=== PATIENT | female | born 1970 | race Caucasian/White ===

== ENCOUNTER → 2017-07-21 | Outpatient (CLI) | payer BC | END | disposition home or self-care (01) | LOC: C.PAPS 13:47 | PROVIDERS: ATTEND Obstetrics & Gynecology | DX: Z01.419 Encounter for gynecological examination (general) (routine) without abnormal findings (principal); Z11.51 Encounter for screening for human papillomavirus (HPV) ==

== ENCOUNTER → 2017-12-03 | Outpatient (CLI) | payer OTHER ==
--- NOTE | 2017-12-03 15:19 | DIAGNOSTIC IMAGING REPORT ---
L LOWER EXT JOINT WITHOUT CLINICAL HISTORY: LT ANKLE PAIN trauma. Pain. TECHNIQUE: Multi axial MRI acquisition COMPARISON STUDY: None FINDINGS: Signal characteristics of all major osseous structures are unremarkable. There is no evidence for bone marrow replacing process. There is no significant bone contusion. Soft tissue structures show evidence for a mild degree of generalized soft tissue edema about the distal aspect of the lower leg as well as the proximal to mid foot and ankle region. This is seen primarily dorsally but is also seen in the interosseous regions throughout the intertarsal joints. Bulk of the ligaments including posterior tibial and peroneal tendons appear to be intact. There is evidence for edematous change about the medial and lateral collateral ligament complex. Partial tears are felt to be present. The ankle mortise shows no evidence for displacement. Superimposed tendinopathy is also present. IMPRESSION: 1. Mild generalized soft tissue edema about the distal lower leg and ankle. 2. No acute bony abnormality. 3. Edematous changes adjacent to the medial and lateral collateral ligament complexes of the ankle consistent with a combination of tendinopathy and a small partial tear components. The above report was generated using voice recognition software. It may contain grammatical, syntax or spelling errors. Electronically signed by: Diego Estrella M.D. 12/03/2017 3:17 PM Dictated Date/Time: 12/03/2017 3:09 PM
== END | disposition home or self-care (01) ==
LOC: C.MRI 13:35
PROVIDERS: ATTEND Family Medicine
DX: M25.572 Pain in left ankle and joints of left foot (principal)

== ENCOUNTER 2022-03-11 09:16 | Observation (INO) ==
--- NOTE | 2022-03-11 09:32 | Emergency Department Note ---
Impression & Plan Non-ST elevation MO (NSTEMI), Chest pain, Hypertension ED Provider Note NAME: JEANNINE SHANKS AGE: 52 SEX: F : 1970 ARRIVES VIA: Walk-In INFORMANT: Patient, ED PROVIDER(S): Ryan Foster MD Chief Complaint: Chest pain HPI: Patient presents due to concern for chest pain that began around 2200 last evening. The patient describes it as sharp somewhat left-sided but primarily central with mild radiation to her back. Patient states that this feels somewhat similar to when she required a stent that was completed due to a failed bypass this last month. The difference does that it is occurring at rest. Patient denies any current nausea vomiting but did have nausea last evening. Patient states that might of been exertional last night and that does go to her jaw. Patient denies any shortness of breath. Patient denies any upper respiratory symptoms. Patient did travel to the [facility] in mid January about a week after she had her stent placed but denies any calf pain, history of DVT or PE. Patient denies any recent falls or trauma and denies any calf pain or leg swelling. Patient has been compliant with her medications and took her aspirin and Plavix last evening. The patient did not take anything for her pain. Patient states that her pain seemed to subside a little bit last evening to where she could sleep but when she woke up this morning she had the discomfort and went to work at the [employer] and had persistent symptoms and thus presented here. The patient has had chest pain for approximate 3 and half hours. ROS: See HPI for pertinent positives and negatives. A total of 10 systems were reviewed and otherwise negative. Past medical history: See below Surgical history: See below Social history: See below Physical Exam: GENERAL: NAD, wearing a mask, non-toxic. Wearing glasses. EYE EXAM: Normal conjunctiva. PERRL, no anisocoria and EOM's grossly intact w/o pain. NECK: Supple, no nuchal rigidity, no adenopathy, non-tender. No signs of meningismus. FROM of the neck with good chin to chest and neck extension. No stridor. LUNGS: Clear to auscultation. Normal chest wall mechanics. HEART: NSR, no MRG. ABDOMEN: Abdomen soft, non-tender, normo-active bowel sounds, no masses, no rebound or guarding. BACK: No CVA TTP. SKIN: No rashes and no bruising. UPPER EXTREMITIES: Upper extremities are grossly normal. LOWER EXTREMITIES: Grossly normal, no edema. Negative Homans' sign bilaterally. NEURO EXAM: A&O x3, cranial nerves II-XII grossly intact, normal speech, moves all 4 extremities. Differential diagnoses: Cardiac ischemia, aortic dissection, pulmonary embolism, pneumothorax, pneumonia, pericarditis, myocarditis, esophageal rupture, GERD, cholecystitis, pancreatitis, musculoskeletal, as well as other pathologies. Course: Patient was seen and evaluated the bedside. Full history physical exam was performed. EKG interpreted by me Sinus rhythm, rate of 60, normal intervals, normal axis, no obvious ST elevations or T WI. T wave flattening in aVL noted. Patient's EKG looks grossly unchanged from January 30, 2022. Imaging Studies: See Below Cardiac monitoring: An order was placed for continuous cardiac monitoring. The monitor shows a rate of 62 with sinus rhythm. MDM: Per chart review the patient was diagnosed with unstable angina did have a ca rdiac catheterization completed January 30. The patient did have a PCI of the proximal to mid LAD with single drug-eluting stent. Patient's cardiac cath performed by Dr. Cisse same day showed distal left main at 10% with left anterior descending late proximal LAD focal 70 to 80% stenosis just proximal to D1. Remainder of the LAD is without significant CAD. Circumflex showed no significant CAD within the circumflex OM1 and OM2. RCA is large and dominant with no significant CAD within the RCA PDA and PL branches. Blood work was obtained and the patient was given a full dose aspirin and nitro as a precaution. EKG does not show any significant changes. IV fluids also ordered. Patient did have a D-dimer completed in addition to chest x-ray. Patient is a normal white count H&H and platelet count. Patient's kidney function is unremarkable with normal coags. D-dimer is not detectable. The patient's troponin was elevated. In light of the patient's recent chest pain that is now resolved with aspirin and nitro do believe the patient would benefit from heparin and admission. I did speak with on-call copyright manager Dr. Bishop who agreed with the heparin. Spoke with on-call hospitalist Dr. Rosen and the patient was admitted to the medicine service. Critical Care: I have personally spent 42 minutes of critical care time in direct management of this patient. This includes bedside care, interpretation of diagnostic studies, and testing, discussion with consultants, patient, and family members, and other require inpatient management activities. This 42 minutes is in excess of all separately billable procedures. 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, treated with mirena Dyslipidemia Hypertension Surgical History Hx of CABG S/P CABG x 1 Family History Mother Coronary heart disease Father Coronary heart disease Grandfather (Maternal) Coronary heart disease Brother Coronary heart disease Sister Coronary heart disease Other Diabetes Heart disease Myocardial infarction Denies family history of Ovarian cancer Breast cancer Colorectal cancer Social History Smoking Status: Never smoker Hx Alcohol Use: Yes Hx Substance Use: No Preferred Language: Swiss Communication Ability: Effective Animal Caregiver Required: No Beliefs That Will Affect Care: None Current Living Situation: Family Other Information That Helps Us Care for You: No Feels Safe at Home: Yes Safety Concerns: Feels Safe At This Time Allergies Allergies Allergy/AdvReac Type Severity Reaction Status Date / Time Penicillins Allergy Severe ANAPHYLAXIS Verified 02/06/22 10:30 Sulfa (Sulfonamide Allergy Mild RASH Verified 02/06/22 10:30 Antibiotics) Home Meds Home Medications Medication Instructions Recorded Confirmed topiramate 100 mg tablet 100 mg PO HS 07/09/18 03/11/22 [id number] 1 tab PO Q6H PRN Headache 06/06/19 03/11/22 50 mg-325 mg-40 mg tablet levonorgestrel 20 mcg/24 hours (7 20 mcg intrauterine ONCE 06/06/19 03/11/22 yrs) 52 mg intrauterine device Previous Rx's Medication Instructions Recorded amlodipine 5 mg tablet 5 mg PO HS #90 tabs 12/10/21 hydrochlorothiazide 25 mg tablet 25 mg PO DAILY #90 tabs 12/10/21 metoprolol succinate 100 mg 100 mg PO HS #90 tabs 12/10/21 tablet,extended release 24 hr rosuvastatin 20 mg tablet 20 mg PO HS #90 tabs 12/10/21 potassium chloride 20 mEq 40 meq PO DAILY #180 tabs 01/29/22 tablet,extended release aspirin 81 mg tablet,delayed 81 mg PO DAILY #30 tabs 01/30/22 release clopidogrel 75 mg tablet (Plavix) 75 mg PO DAILY #90 tabs 02/28/22 pantoprazole 40 mg tablet,delayed 40 mg PO DAILY #90 tabs 03/04/22 release (Protonix) Results & Data (ED) Vital Signs Vital Signs - 24 hr 03/11/22 09:24 03/11/22 09:45 03/11/22 09:48 Temperature 36.5 C Temperature Source Oral Pulse Rate 59 L 61 Pulse Rate [Right Finger] 58 L Pulse Rhythm Regular Regular Pulse Rhythm [Right Finger] Regular Pulse Strength Normal Pulse Strength [Right Finger] Normal Respiratory Rate 20 14 20 Respiratory Effort / Characteristics Non-Labored Spontaneous Non-Labored Spontaneous Respiratory Depth Normal Normal Respiratory Pattern Regular Regular Blood Pressure 131/75 Blood Pressure [Left Arm] 121/75 Blood Pressure Mean 93 Blood Pressure Mean [Left Arm] 90 Blood Pressure Position Sitting Blood Pressure Position [Left Arm] Lying Pulse Oximetry 100 100 100 Oxygen Delivery Method Room Air Room Air Room Air Sepsis Recent Fever Within 48 Hours No Sepsis New/Unexplained Change in Mental Status No Sepsis Action Taken by Nursing No Action Required 03/11/22 10:05 03/11/22 11:16 03/11/22 13:00 Temperature Temperature Source Pulse Rate Pulse Rate [Right Finger] 54 L 58 L Pulse Rhythm Pulse Rhythm [Right Finger] Regular Regular Pulse Strength Pulse Strength [Right Finger] Normal Normal Respiratory Rate 17 19 Respiratory Effort / Characteristics Non-Labored Spontaneous Non-Labored Spontaneous Respiratory Depth Normal Normal Respiratory Pattern Regular Blood Pressure Blood Pressure [Left Arm] Blood Pressure Mean Blood Pressure Mean [Left Arm] Blood Pressure Position Blood Pressure Position [Left Arm] Pulse Oximetry 99 97 Oxygen Delivery Method Room Air Room Air Room Air Sepsis Recent Fever Within 48 Hours Sepsis New/Unexplained Change in Mental Status Sepsis Action Taken by Skilled Nursing Medications Current Medication List: was personally reviewed by me Laboratory Data Attestation: I reviewed the patient's lab results. Result diagrams: 03/11/22 09:45 03/11/22 09:45 Lab Results 03/11/22 03/11/22 03/11/22 Range/Units 09:45 09:45 09:45 WBC 7.02 (4.8-10.8) K/ul RBC 4.80 (3.93-5.22) M/uL Hgb 14.6 (12.0-16.0) g/dl Hct 43.9 (34.1-44.9) % MCV 91.5 (80.0-100.0) fL MCH 30.4 (25.0-34.0) pg MCHC 33.3 (32.0-36.0) g/dL RDW Std Deviation 42.6 (36.4-46.3) fL RDW Coeff of Monica 12.8 (11.5-14.5) % Plt Count 212 (130-400) K/uL MPV 9.1 L (9.4-12.3) fL Immature Gran % (Auto) 0.3 % Neut % (Auto) 59.8 % Lymph % (Auto) 32.8 % [place] % (Auto) 4.7 % Eos % (Auto) 2.0 % Baso % (Auto) 0.4 % Neut # (Auto) 4.20 (1.4-6.5) K/uL Lymph # (Auto) 2.30 (1.2-3.4) K/uL [place] # (Auto) 0.33 (0.24-0.82) K/uL Eos # (Auto) 0.14 (0-0.50) K/uL Baso # (Auto) 0.03 (0-0.2) K/uL Immature Gran # (Auto) 0.02 (0.00-0.02) K/uL PT 10.6 (9.0-12.0) Seconds INR 1.0 (0.9-1.1) APTT 24.8 (21.0-31.0) Seconds PTT Ratio 0.9 D-Dimer < 190 (0-500) ug/L FEU Sodium 141 (136-145) mmol/L Potassium 3.8 (3.5-5.1) mmol/L Chloride 110 H (98-107) mmol/L Carbon Dioxide 24 (21-32) mmol/L Anion Gap 7 (3-11) BUN 14 (6-23) mg/dl Creatinine 0.97 (0.6-1.2) mg/dl Est Cr Clr Drug Dosing 67.2 ml/min Est GFR ( Amer) 77.3 ml/min Est GFR (Non-Af Amer) 66.7 ml/min BUN/Creatinine Ratio 14.4 (10-20) Glucose 115 H (70-99(Fasting)) mg/dl Calcium 9.6 (8.5-10.1) mg/dl Magnesium (1.7-2.4) mg/dl Total Bilirubin 0.3 (0.2-1.0) mg/dl AST 23 (13-39) U/L ALT 30 (7-52) U/L Alkaline Phosphatase 71 (34-104) U/L Troponin I High Sens 227.1 H* (0-14) pg/ml Total Protein 8.2 (6.0-8.3) gm/dl Albumin 4.7 (3.4-5.0) gm/dl Globulin 3.5 (2.5-4.0) gm/dl Albumin/Globulin Ratio 1.3 (0.9-2) Lipase 73 (11-82) U/L SARS-CoV-2, RNA, NAAT (NEGATIVE) 03/11/22 03/11/22 03/11/22 Range/Units 10:55 12:17 12:17 WBC (4.8-10.8) K/ul RBC (3.93-5.22) M/uL Hgb (12.0-16.0) g/dl Hct (34.1-44.9) % MCV (80.0-100.0) fL MCH (25.0-34.0) pg MCHC (32.0-36.0) g/dL RDW Std Deviation (36.4-46.3) fL RDW Coeff of Monica (11.5-14.5) % Plt Count (130-400) K/uL MPV (9.4-12.3) fL Immature Gran % (Auto) % Neut % (Auto) % Lymph % (Auto) % [place] % (Auto) % Eos % (Auto) % Baso % (Auto) % Neut # (Auto) (1.4-6.5) K/uL Lymph # (Auto) (1.2-3.4) K/uL [place] # (Auto) (0.24-0.82) K/uL Eos # (Auto) (0-0.50) K/uL Baso # (Auto) (0-0.2) K/uL Immature Gran # (Auto) (0.00-0.02) K/uL PT (9.0-12.0) Seconds INR (0.9-1.1) APTT (21.0-31.0) Seconds PTT Ratio D-Dimer (0-500) ug/L FEU Sodium (136-145) mmol/L Potassium (3.5-5.1) mmol/L Chloride (98-107) mmol/L Carbon Dioxide (21-32) mmol/L Anion Gap (3-11) BUN (6-23) mg/dl Creatinine (0.6-1.2) mg/dl Est Cr Clr Drug Dosing ml/min Est GFR ( Amer) ml/min Est GFR (Non-Af Amer) ml/min BUN/Creatinine Ratio (10-20) Glucose (70-99(Fasting)) mg/dl Calcium (8.5-10.1) mg/dl Magnesium 1.9 (1.7-2.4) mg/dl Total Bilirubin (0.2-1.0) mg/dl AST (13-39) U/L ALT (7-52) U/L Alkaline Phosphatase (34-104) U/L Troponin I High Sens 210.9 H* (0-14) pg/ml Total Protein (6.0-8.3) gm/dl Albumin (3.4-5.0) gm/dl Globulin (2.5-4.0) gm/dl Albumin/Globulin Ratio (0.9-2) Lipase (11-82) U/L SARS-CoV-2, RNA, NAAT NEGATIVE (NEGATIVE) Administered Medications Heparin Sodium/Dextrose (Heparin Sodium/Dextrose) 25,000 units in 500 mls @ 15 mls/hr IV .Q24H [facility]; Protocol Stop: 04/10/22 11:14 Last Admin: 03/11/22 12:39 Dose: 750 units/hr, 15 mls/hr Documented By: RC Co-signed By: SLB Discontinued Medications Aspirin (Aspirin Chew 324 Mg) 324 mg PO NOW STA Stop: 03/11/22 09:41 Last Admin: 03/11/22 10:00 Dose: 324 mg Documented By: CDV Heparin Sodium/Dextrose (Heparin Iv Adult Wt-Based Low-Dose *No* Bolus Protocol) 1 each IV Q15M [facility]; Protocol Stop: 04/10/22 11:44 Last Admin: 03/11/22 13:10 Dose: Not Given Documented By: Admin: 03/11/22 13:10 Dose: Not Given Documented By: Admin: 03/11/22 13:10 Dose: Not Given Documented By: Admin: 03/11/22 12:49 Dose: Not Given Documented By: SHAMA Sodium Chloride (Nss) 500 mls @ 999 mls/hr IV .Q31M STA Stop: 03/11/22 10:10 Last Infusion: 03/11/22 10:45 Dose: 0 mls/hr Documented By: Admin: 03/11/22 10:01 Dose: 999 mls/hr Documented By: CDV Nitroglycerin (Nitroglycerin Sl 0.4 Mg/Tab Tab) 0.4 mg SL NOW STA Stop: 03/11/22 09:41 Last Admin: 03/11/22 10:00 Dose: 0.4 mg Documented By: CDV Ondansetron HCl (Ondansetron Inj 2 Mg/Ml 2 Ml Vial) 4 mg IV NOW STA Stop: 03/11/22 09:41 Last Admin: 03/11/22 10:00 Dose: 4 mg Documented By: CDV Potassium Chloride (Potassium Chloride Crtab 20 Meq Tabcr) 40 meq PO NOW STA Stop: 03/11/22 13:19 Last Admin: 03/11/22 13:59 Dose: 40 meq Documented By: CDV Imaging Data Radiologist's Impression: Chest X-Ray 03/11/22 09:40 XR chest 1V portable HISTORY: Atypical Chest Pain COMPARISON: Chest 07/09/2018. FINDINGS: The lungs are clear. The cardiac silhouette is top normal in size. No pleural effusions. No pneumothorax. Surgical clips noted within the right upper quadrant. IMPRESSION: No acute process. ACT 112: Negative or not required by law. Electronically signed by: Adan Osuna M.D. 03/11/2022 10:17 AM Discharge Plan Visit Data Chief Complaint: Chest Pain Stated Complaint: CHEST PAIN, BACK PAIN, NECK PAIN, REFERRED BY DR ED Provider: Ryan Foster Discharge Problem: Non-ST elevation MO (NSTEMI), Chest pain, Hypertension Patient Disposition: Admitted As Inpatient Discharge Instructions Interventions: ED Discharge Assessment Last Done: 03/11/22 14:03
[2022-03-11] MEDS ORDERED: SODIUM CHLORIDE 0.9% 500 ML IV STA (09:40)
[2022-03-11] MEDS ORDERED: ONDANSETRON INJ 2 MG/ML 2 ML VIAL IV STA (09:40)
[2022-03-11] MEDS ORDERED: NITROGLYCERIN SL 0.4 MG/TAB TAB SL STA (09:40)
[2022-03-11] MEDS ORDERED: ASPIRIN CHEW 324 MG PO STA (09:40)
[2022-03-11 09:56] LABS: Basophils # (auto) 0.03 K/uL (0-0.2); Basophils % (auto) 0.4 %; Eosinophils # (auto) 0.14 K/uL (0-0.50); Hematocrit (blood only) 43.9 % (34.1-44.9); Hemoglobin 14.6 g/dl (12.0-16.0); Immature Granulocytes # (auto) 0.02 K/uL (0.00-0.02); Immature Granulocytes % (auto) 0.3 %; Lymphocytes % (auto) 32.8 %; Mean Corpuscular Hemoglobin 30.4 pg (25.0-34.0); Mean Corpuscular Hgb Conc 33.3 g/dL (32.0-36.0); Mean Corpuscular Volume 91.5 fL (80.0-100.0); Mean Platelet Volume 9.1 fL (9.4-12.3); Monocytes # (auto) 0.33 K/uL (0.24-0.82); Monocytes % (auto) 4.7 %; Neutrophils % (auto) 59.8 %; Platelet Count 212 K/uL (130-400); RDW Coefficient of Variation 12.8 % (11.5-14.5); RDW Standard Deviation 42.6 fL (36.4-46.3); White Blood Count 7.02 K/ul (4.8-10.8)
[2022-03-11 10:13] LABS: D Dimer < 190 ug/L FEU (0-500); Partial Thromboplastin Ratio 0.9; Partial Thromboplastin Time 24.8 Seconds (21.0-31.0); Prothrombin Time 10.6 Seconds (9.0-12.0)
--- NOTE | 2022-03-11 10:18 | XRay Report ---
XR chest 1V portable HISTORY: Atypical Chest Pain COMPARISON: Chest 07/09/2018. FINDINGS: The lungs are clear. The cardiac silhouette is top normal in size. No pleural effusions. No pneumothorax. Surgical clips noted within the right upper quadrant. IMPRESSION: No acute process. ACT 112: Negative or not required by law. Electronically signed by: Adan Osuna M.D. 03/11/2022 10:17 AM
[2022-03-11 10:22] LABS: Albumin Globulin Ratio 1.3 (0.9-2); Albumin Level 4.7 gm/dl (3.4-5.0); BUN Creatinine Ratio 14.4 (10-20); Bilirubin,Total 0.3 mg/dl (0.2-1.0); Calcium 9.6 mg/dl (8.5-10.1); Creatinine Clr Calc Pharmacy 67.2 ml/min; Est GFR (African American) 77.3 ml/min; Est GFR (Non-African American) 66.7 ml/min; Globulin 3.5 gm/dl (2.5-4.0); Potassium 3.8 mmol/L (3.5-5.1); Total Protein 8.2 gm/dl (6.0-8.3)
[2022-03-11 10:37] LABS: Troponin I High Sensitivity 227.1 pg/ml (0-14)
[2022-03-11] MEDS ORDERED: Heparin IV Adult Wt-Based Low-Dose *NO* Bolus Protocol IV ONE (11:13)
[2022-03-11] MEDS ORDERED: HEPARIN SODIUM/DEXTROSE 25,000 UNITS/500 ML BAG IV SCH (11:15)
--- NOTE | 2022-03-11 11:34 | History & Physical Report ---
Date of Service March 11, 2022 Assessment & Plan (1) Chest pain: Plan: - Onset last evening at rest, central chest pressure 7-8/10 with radiation to right jaw and upper back between shoulder blades. Normal EKG, however initial hs troponin 227. Given her CAD history and recent stent placement, this is concerning for NSTEMI. Did have recent travel a week after her stent placement down to [place], however D-dimer today within normal limits and she is not presenting with lower extremity swelling or calf pain. No SOB. SPO2 >95% on RA. Less concerning for aortic dissection, pulses equal bilaterally, back pain resolved with nitro, vitals within normal limits, BP normotensive. - Trend troponin, patient to be started on heparin gtt per cardiology. - Cardiology consulted, appreciate their recommendations. - Patient had recurrence of chest pain around 3 pm this afternoon. It is slightly less severe than it was last evening/this AM, but is still central chest pain with radiation to jaw and back. No associated symptoms. It lasts 2-3 mintues then resolves on its own for 15 minutes before recurring. An EKG was performed which had no acute changes, appeared very similar to EKG upon presentation. She is due for her next troponin at 8:00 this evening. For now, will order nitro paste for chest pain, morphine as second line if chest pain does not resolve with nitro. (2) CAD (coronary artery disease): Plan: - s/p CABG x1 LIMALAD in 2014 in [place]. - With recurrent chest pain this summer with walking--had a scheduled cardiac cath done on 01/30/22 that revealed severe CAD involving late proximal LAD and atretic OVALLE to LAD with no competitive flow noted within the LAD. Had a successful PCI of proximal and mid LAD with single FESTUS and angioplasty of jailed ostial first diagonal branch. - Continue baby ASA, Plavix, metoprolol, amlodipine, statin. - Had appointment with police manager on 02/04, at that time her Imdur was discontinued. - Will defer on rechecking lipid panel since its been done in the past 2 months, however will add on A1c to morning labs. (3) Hypertension: Plan: - Well-controlled on hydrochlorothiazide, amlodipine, and metoprolol. Imdur recently stopped by cardiology last month after stent placement. (4) Dyslipidemia: Plan: - Continue rosuvastatin 20 mg at night. - Most recent lipid panel in December 2021 --> all levels wnl. (5) GERD (gastroesophageal reflux disease): Plan: - Continue pantoprazole. Patient was recently switched from omeprazole to pantoprazole at last cardiology appointment due to the above results interaction with Plavix. (6) History of migraine headaches: Plan: - Continue topiramate 100 mg at night. Plan - Admit to PCU. - SCDs for VTE PPx, patient on heparin gtt - Full code. History of Present Illness Chief Complaint: chest pain since last evening Primary Care Provider: Freddie Arnold DO Nanci Zuniga is a 52-year-old female with past medical history significant for CAD s/p CABG x1 OVALLE to LAD in 2014 and subsequent FESTUS placement in proximalmid LAD in January 2022 due to an atretic OVALLE, hypertension, hyperlipidemia, migraine headaches, and GERD who presents today with chest pain. Last evening around 10:00 PM she was watching TV suddenly felt central chest pain that radiated to her back between her shoulder blades as well as her right jaw. She rates his pain 7-8/10. Continue to persist throughout the night, eventually she fell asleep is able to sleep through the night. She woke up this morning with the pain still present. It is associated with a throbbing bilateral headache and a sensation of feeling winded and nausea. She called her police manager this morning who recommended she present to the ED for evaluation. Since her stent was placed about a month ago, she has had 2 other incidents of chest pain similar to today's event, both coming on at rest. Chest pain is similar to how she presented prior to her bypass several years ago and prior to stent placement, however at that time her symptoms presented with exertion. In the ED, her VS are wnl and stable, HR in 50s, which appears to be patient's baseline. Labs significant for initial hs trop of 227, otherwise labs are largely unremarkable, D-dimer checked, <190 ug/L. CXR did not show acute process, negative for mediastinal widening. Allergies Allergy/AdvReac Type Severity Reaction Status Date / Time Penicillins Allergy Severe ANAPHYLAXIS Verified 02/06/22 10:30 Sulfa (Sulfonamide Allergy Mild RASH Verified 02/06/22 10:30 Antibiotics) Home Medications Medication Instructions Recorded Confirmed Type topiramate 100 mg tablet 100 mg PO HS 07/09/18 03/11/22 History asitqvsoqo-rcjoilspvlbhb-tcubabax 1 tab PO Q6H PRN Headache 06/06/19 03/11/22 History 50 mg-325 mg-40 mg tablet levonorgestrel 20 mcg/24 hours (7 20 mcg intrauterine ONCE 06/06/19 03/11/22 History yrs) 52 mg intrauterine device amlodipine 5 mg tablet 5 mg PO HS #90 tabs 12/10/21 03/11/22 Rx hydrochlorothiazide 25 mg tablet 25 mg PO DAILY #90 tabs 12/10/21 03/11/22 Rx metoprolol succinate 100 mg 100 mg PO HS #90 tabs 12/10/21 03/11/22 Rx tablet,extended release 24 hr rosuvastatin 20 mg tablet 20 mg PO HS #90 tabs 12/10/21 03/11/22 Rx potassium chloride 20 mEq 40 meq PO DAILY #180 tabs 01/29/22 03/11/22 Rx tablet,extended release aspirin 81 mg tablet,delayed 81 mg PO DAILY #30 tabs 01/30/22 03/11/22 Rx release clopidogrel 75 mg tablet (Plavix) 75 mg PO DAILY #90 tabs 02/28/22 03/11/22 Rx pantoprazole 40 mg tablet,delayed 40 mg PO DAILY #90 tabs 03/04/22 03/11/22 Rx release (Protonix) 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, treated with mirena Dyslipidemia Hypertension Surgical History Hx of CABG S/P CABG x 1 Family History Mother Coronary heart disease Father Coronary heart disease Grandfather (Maternal) Coronary heart disease Brother Coronary heart disease Sister Coronary heart disease Other Diabetes Heart disease Myocardial infarction Denies family history of Ovarian cancer Breast cancer Colorectal cancer Social History Smoking Status: Never smoker Hx Alcohol Use: Yes Hx Substance Use: No Preferred Language: Romansh Communication Ability: Effective Christian Counselor Required: No Beliefs That Will Affect Care: None Current Living Situation: Family Other Information That Helps Us Care for You: No Feels Safe at Home: Yes Safety Concerns: Feels Safe At This Time Review of Systems Review of Systems: Constitutional: No fever/chills, weakness, fatigue, myalgias, anorexia, night sweats Eyes: No diplopia, no worsening or blurred vision ENT: normal hearing, no trouble swallowing Respiratory: feeling winded with onset of chest pain last evening; No cough, sputum, dyspnea at rest or on exertion Cardiovascular: central chest pain with radiation to right jaw and between shoulder blades last evening Abdomen: nausea with chest pain without vomiting, abdominal pain, diarrhea or constipation : Denies dysuria, hematuria, increased urgency/frequency, urinary retention Musculoskeletal: No joint pain, calf pain, swelling Neurologic: No weakness, numbness/tingling, or balance problems Psychiatric: No anxiety or depression Skin: No rash or itch Physical Exam Physical Exam: General: awake, alert, no apparent distress Head: Normocephalic, atraumatic ENT: PERRL, EOMI, no pharyngeal exudate, mucous membranes moist Chest: Clear to auscultation, on room air, no adventitious breath sounds Cardiac: Regular rate and rhythm, no murmur, no JVD, normal peripheral pulses, good capillary refill Abdominal: NABS x 4 quadrants, soft, nontender to palpation, no rebound, guarding or tenderness Extremities: Normal inspection, no peripheral edema or erythema, calfs nontender to palpation Psych: Normal mood and affect Neuro: AAO x 3, strength intact bilaterally and rated 5/5, no motor deficits, speech is clear, no peripheral sensory deficits Skin: no rash or erythema Results & Data Results & Data ([facility]) Vital Signs (Past 12 Hours) Vital Signs Temp Pulse Pulse Resp BP BP Pulse Ox 03/11/22 10:05 03/11/22 09:48 58 L 20 121/75 100 03/11/22 09:45 61 14 100 03/11/22 09:24 36.5 C 59 L 20 131/75 100 O2 Del Method 03/11/22 10:05 Room Air 03/11/22 09:48 Room Air 03/11/22 09:45 Room Air 03/11/22 09:24 Room Air Laboratory Results Abnormal lab results 03/11/22 03/11/22 Range/Units 09:45 09:45 MPV 9.1 L (9.4-12.3) fL Chloride 110 H (98-107) mmol/L Glucose 115 H (70-99(Fasting)) mg/dl Troponin I High Sens 227.1 H* (0-14) pg/ml Diagnostic Findings Chest X-Ray 03/11/22 09:40 XR chest 1V portable HISTORY: Atypical Chest Pain COMPARISON: Chest 07/09/2018. FINDINGS: The lungs are clear. The cardiac silhouette is top normal in size. No pleural effusions. No pneumothorax. Surgical clips noted within the right upper quadrant. IMPRESSION: No acute process. ACT 112: Negative or not required by law. Electronically signed by: Adan Osuna M.D. 03/11/2022 10:17 AM ECG Additional Comments: Normal sinus rhythm Normal ECG When compared with ECG of 30-JAN-2022 11:25, No significant change was found. Code Status & VTE Plan Code Status Full Code. Supervising Physician Co-Signing Physician Notes PA Supervision Note: I personally saw and examined the patient. I verified all middleton points and agree with ANDREW Jean-Baptiste with the following exceptions and/or additions: S-Pt presents with intermittent CP substernal, radiating through to her back that came on last night and went away and then came on again this morning. Her pain was completely taken away with nitroglycerin in the ER. Denies shortness of breath or diaphoresis. No abdominal pains. Initial troponin in the ER was elevated in the 200s. ECG without ischemic changes. I discussed the case with cardiology. She developed chest pain again after admission and Nitropaste was given along with morphine. Treatment for cardiac catheterization which showed nothing amenable to treatment O- Vitals reviewed Gen: AAOx3, NAD HEENT: Anicteric sclerae, EOMI CV: RRR no mgr nl S1S2 Pulm: CTAB no wcr Abd: +BS soft NT ND no masses or hernias Ext: No edema, 2+ DP pulses Skin: No rashes, warm/dry Neuro: Full strength throughout Labs, Rads, and ECG reviewed A/B-63-rros-old female with history of CAD and history otherwise as above, here with NSTEMI. cardiac catheterization and was without significant changes-continue to medically manage Okay to discontinue heparin drip Restart isosorbide that was discontinued last month after stent Continue to trend troponin Appreciate cardiology consultation Monitor on telemetry PG Care Time/CCT Total # of Minutes Spent Total Time Spent with Patient: Total time spent is greater than 50% in coordination of care (as documented) at patient's floor/unit and/or counseling patient: Coding Level of Care Code 35562 Initial Inpt Care Lvl 2 Diagnoses Chest pain R07.9 CAD (coronary artery disease) I25.10 Hypertension I10 Dyslipidemia E78.5 GERD (gastroesophageal reflux disease) K21.9 History of migraine headaches Z86.69
[2022-03-11] MEDS: Heparin IV Adult Wt-Based Low-Dose *NO* Bolus Protocol IV SCH ×2 (12:49→13:10)
[2022-03-11] MEDS ORDERED: POTASSIUM CHLORIDE CRTAB 20 MEQ TABCR PO STA (13:18)
[2022-03-11] MEDS ORDERED: [UNRECOGNIZED DRUG - OTHER] IU SCH (14:51)
[2022-03-11] MEDS ORDERED: ACETAMINOPHEN 325 MG TAB PO PRN (14:51)
[2022-03-11] MEDS ORDERED: POLYETHYLENE (MIRALAX) 17 GM PACK PO PRN (14:51)
[2022-03-11] MEDS ORDERED: ONDANSETRON INJ 2 MG/ML 2 ML VIAL IV PRN (14:51)
[2022-03-11] MEDS ORDERED: LEVONORGESTREL IU SCH (14:51)
[2022-03-11] MEDS ORDERED: MoRPHine SULFATE 2 MG/ML CARP IV PRN (14:54)
--- NOTE | 2022-03-11 14:58 | Electrocardiogram Report ---
Test Reason : Blood Pressure : / mmHG Vent. Rate : 060 BPM Atrial Rate : 060 BPM P-R Int : 144 ms QRS Dur : 098 ms QT Int : 426 ms P-R-T Axes : 053 073 069 degrees QTc Int : 426 ms Poor data quality, interpretation may be adversely affected Normal sinus rhythm Normal ECG When compared with ECG of 30-JAN-2022 11:25, No significant change was found Confirmed by Aly Bishop ([id number]) on 03/11/2022 2:58:23 PM Referred By: Confirmed By:Aly Bishop
[2022-03-11] MEDS ORDERED: NITROGLYCERIN 2% OINTMENT 30GM TUBE EXT ONE (15:13)
[2022-03-11] MEDS ORDERED: CLOPIDOGREL BISULFATE 75 MG TAB PO ONE (15:48)
[2022-03-11] MEDS ORDERED: niCARdipine HCL INJ 2.5 MG/ML 10 ML AMP ONE (16:04)
[2022-03-11] MEDS ORDERED: HEPARIN (PORCINE) 1000 UNIT/ML 10 ML (CATH LAB USE ONLY) ONE (16:04)
[2022-03-11] MEDS ORDERED: MIDAZOLAM HCL 1 MG/ML 2ML VIAL ONE (16:04)
[2022-03-11] MEDS ORDERED: fentaNYL citrate 100 MCG/2 ML VIAL ONE (16:04)
[2022-03-11] MEDS ORDERED: NITROGLYCERIN/D5W 100MCG/ML 20ML SYR ONE (16:04)
--- NOTE | 2022-03-11 16:06 | Cardiology Consultation ---
Date of Consultation March 11, 2022 Assessment & Plan (1) Chest pain: -her discomfort is concerning for unstable angina pectoris. -agree with intravenous heparin and topical nitrates. -case discussed with Dr. Sosa. We will proceed with an urgent catheterization. (2) CAD (coronary artery disease): -s/p OVALLE to the LAD, December 2014 (robotic procedure). -proximal LAD FESTUS, 3.0 x 15 mm Almond, January 30, 2022. -angioplasty of a jailed 1st diagonal branch, January 30, 2022. -as above, urgent catheterization. (3) Hypertension: -adequate control on current regimen. (4) Dyslipidemia: -continue rosuvastatin. History of Present Illness Attending Physician: Lexi Rosen MD History of Present Illness Mrs. Zuniga is a 52-year-old female admitted earlier today with a chest pain syndrome. This consultation was ordered to assist in her cardiac management. Of note, she is typically seen by Dr. Cisse in the outpatient setting. The patient's recent history began in early January. She presented to our office complaints of classic exertional angina pectoris. She was taken to the cardiac catheterization laboratory on January 30 and found to have an atretic OVALLE to the LAD. There was an 80% proximal LAD stenosis. Dr. Sosa placed a 3.0 x 15 mm Almond at that position. He then angioplastied a jailed ostial D1 stenosis with a 2.0 balloon. She was discharged home in stable fashion on dual anti-platelet therapy. Since returned home, she has had several episodes of a chest pain syndrome. Last evening, she experienced right-sided chest tightness with a sharp component. There was radiation to her right trauma and her right upper back. Her discomfort lasted for approximately 60 minutes and seemed to resolve after she took Tylenol p.m.. After awakening this morning, she had a recurrence of that discomfort as described. She became quite concerned and presented to the emergency room for further care. On arrival here, her high sensitivity troponin was elevated 227.1. EKG had no acute findings. She was started on intravenous heparin and hospitalization was recommended. She had a recurrence of her discomfort just after arriving to her room on the 2nd floor. Her symptoms have since resolved, however, she does noted persistent heaviness in her upper chest. We have discussed need to proceed with a cardiac catheterization. Of note, her bypass surgery was performed in [facility] per in December of 2014. This included an OVALLE to the LAD. Past medical and surgical history 1. Coronary artery disease-see above 2. CABG times 08/01/2014 3. LAD FESTUS-January 30, 2022 4. Hypertension 5. Hypercholesterolemia 6. GERD Social history , lives alone No tobacco alcohol Family history Mother had her 1st MD at the age of 55. Her father had his 1st stent placed in his early 50s. Review of systems A 10 point review systems was undertaken and negative except that described above. Allergies Allergy/AdvReac Type Severity Reaction Status Date / Time Penicillins Allergy Severe ANAPHYLAXIS Verified 02/06/22 10:30 Sulfa (Sulfonamide Allergy Mild RASH Verified 02/06/22 10:30 Antibiotics) Home Medications Medication Instructions Recorded Confirmed Type topiramate 100 mg tablet 100 mg PO HS 07/09/18 03/11/22 History kypwmxlqsj-edjvfdpgjsmyi-izoxfxzb 1 tab PO Q6H PRN Headache 06/06/19 03/11/22 History 50 mg-325 mg-40 mg tablet levonorgestrel 20 mcg/24 hours (7 20 mcg intrauterine ONCE 06/06/19 03/11/22 History yrs) 52 mg intrauterine device amlodipine 5 mg tablet 5 mg PO HS #90 tabs 12/10/21 03/11/22 Rx hydrochlorothiazide 25 mg tablet 25 mg PO DAILY #90 tabs 12/10/21 03/11/22 Rx metoprolol succinate 100 mg 100 mg PO HS #90 tabs 12/10/21 03/11/22 Rx tablet,extended release 24 hr rosuvastatin 20 mg tablet 20 mg PO HS #90 tabs 12/10/21 03/11/22 Rx potassium chloride 20 mEq 40 meq PO DAILY #180 tabs 01/29/22 03/11/22 Rx tablet,extended release aspirin 81 mg tablet,delayed 81 mg PO DAILY #30 tabs 01/30/22 03/11/22 Rx release clopidogrel 75 mg tablet (Plavix) 75 mg PO DAILY #90 tabs 02/28/22 03/11/22 Rx pantoprazole 40 mg tablet,delayed 40 mg PO DAILY #90 tabs 03/04/22 03/11/22 Rx release (Protonix) Patient History Medical History CAD (coronary artery disease) 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, treated with mirena Dyslipidemia Hypertension Surgical History Hx of CABG S/P CABG x 1 Family History Mother Coronary heart disease Father Coronary heart disease Grandfather (Maternal) Coronary heart disease Brother Coronary heart disease Sister Coronary heart disease Other Diabetes Heart disease Myocardial infarction Denies family history of Ovarian cancer Breast cancer Colorectal cancer Social History Smoking Status: Never smoker Hx Alcohol Use: Yes Hx Substance Use: No Preferred Language: Setswana Communication Ability: Effective Dewatering Filtering Supervisor Required: No Beliefs That Will Affect Care: None Current Living Situation: Family Other Information That Helps Us Care for You: No Feels Safe at Home: Yes Safety Concerns: Feels Safe At This Time Physical Exam Physical Exam: In general this is a well-developed well-nourished white female in no acute distress. HEENT exam is negative. Neck is supple with full carotid upstrokes. There are no carotid bruits. Jugular venous pressure is flat at 90 . There is no thyromegaly. Cardiovascular exam reveals a regular rhythm with a normal S1 and S2. No S3, S4, or murmurs are noted. Lungs are clear without rales, rhonchi, or wheezes. Abdomen is soft and nontender without bruits. Extremities reveal intact radial artery and posterior tibial pulses bilaterally. There is no peripheral edema. Results & Data ([facility]) Vital Signs (Past 12 Hours) Vital Signs Temp Pulse Pulse Resp BP BP Pulse Ox 03/11/22 15:20 36.5 C 56 L 18 129/87 97 03/11/22 14:51 36.5 C 56 L 18 129/87 97 03/11/22 13:00 58 L 19 97 03/11/22 11:16 54 L 17 99 03/11/22 10:05 03/11/22 09:48 58 L 20 121/75 100 03/11/22 09:45 61 14 100 03/11/22 09:24 36.5 C 59 L 20 131/75 100 O2 Del Method 03/11/22 15:20 Room Air 08/16/22 14:51 Room Air 03/11/22 13:00 Room Air 03/11/22 11:16 Room Air 03/11/22 10:05 Room Air 03/11/22 09:48 Room Air 03/11/22 09:45 Room Air 03/11/22 09:24 Room Air Laboratory Results CBC notes hemoglobin of 14.6, hematocrit 43.9, white count 7.02, and platelet count [id number]. Electrolytes note a sodium of 141, potassium 3.8, chloride 110, bicarb 24, BUN 14, creatinine 0.97, glucose of 115. Initial high sensitivity troponin was 227.1 with a follow-up value of 210.9. Diagnostic Findings Echocardiogram performed at the bedside notes normal left ventricular systolic function without obvious wall motion abnormalities. EKG notes normal sinus rhythm without abnormalities. Chest x-ray shows no acute disease. PG Care Time/CCT Total # of Minutes Spent Total Time Spent with Patient: Total time spent is greater than 50% in coordination of care (as documented) at patient's floor/unit and/or counseling patient: Coding Level of Care Code 48815 Inpt Consult Level 5 Diagnoses Chest pain R07.9 CAD (coronary artery disease) I25.10 Hypertension I10 Dyslipidemia E78.5
--- NOTE | 2022-03-11 16:25 | XCELERA ---
[id number]
--- NOTE | 2022-03-11 17:14 | Post Anesthesia Assessment ---
Date of Service March 11, 2022 Post Sedation Assessment Vital Signs Temp Pulse Pulse Resp BP BP Pulse Ox 03/11/22 16:49 58 L 03/11/22 14:51 03/11/22 15:20 97.7 F 56 L 18 129/87 97 03/11/22 14:51 97.7 F 56 L 18 129/87 97 03/11/22 13:00 58 L 19 97 03/11/22 11:16 54 L 17 99 03/11/22 10:05 03/11/22 09:48 58 L 20 121/75 100 03/11/22 09:45 61 14 100 03/11/22 09:24 97.7 F 59 L 20 131/75 100 Pulse Ox O2 Del Method O2 Del Method 03/11/22 16:49 03/11/22 14:51 97 Room Air 03/11/22 15:20 Room Air 03/11/22 14:51 Room Air 03/11/22 13:00 Room Air 03/11/22 11:16 Room Air 03/11/22 10:05 Room Air 03/11/22 09:48 Room Air 03/11/22 09:45 Room Air 03/11/22 09:24 Room Air Recovery Score Activity: Moves 4 extremities Respiration: Deep Breath/Cough Circulation: +/-20% PreAnes Value Consciousness: Fully Awake Oxygen Saturation: O2 needed for >90% Discharge Sedation Level of Care: Fast Track Phase II Post Sedation Plan On clinical assessment, the patient appears to have tolerated the sedation without complications. Patient is recovering as anticipated. Patient will continue to be monitored by nursing and may be discharged when sedation discharge criteria are met per below protocol. Upon Completions of procedure up to 15 minutes continue every 5 minute vital signs and the P.A.R. score; then discharge to a Phase I or Fast Track to Phase II per the following guidelines: * Discharge Patient to appropriate Phase II area if PAR is 8 or greater or return to pre- procedure baseline. The post - procedure orders will be as directed. * If PAR score is less than 8 or not return to pre-procedure baseline then patient will follow Phase I monitoring till PAR is reached for Phase II. The Phase I may be done in procedure room or may call to secure a Phase I area. * If naloxone or flumazenil are used for reversal, hold in Phase I for continued monitoring from when last reversal dose was given for a minimum of 60 minutes or longer pending the nurse and/or physician discretion of patient condition before discharge to Phase II. Please call the Sedation Physician to re-evaluate and complete post-note for discharge to Phase II area. Do NOT discharge from procedure sedation or Phase 1 until post- sedation evaluation note is complete by procedure /sedation MD Sedation Discharge Instructions to be given to the patient at discharge to home.
--- NOTE | 2022-03-11 17:14 | Pre Anesthesia Assessment ---
Date of Service March 11, 2022 Pre Sedation Assessment Vital Signs Temp Pulse Pulse Resp BP BP Pulse Ox 03/11/22 16:49 58 L 03/11/22 14:51 03/11/22 15:20 97.7 F 56 L 18 129/87 97 03/11/22 14:51 97.7 F 56 L 18 129/87 97 03/11/22 13:00 58 L 19 97 03/11/22 11:16 54 L 17 99 03/11/22 10:05 03/11/22 09:48 58 L 20 121/75 100 03/11/22 09:45 61 14 100 03/11/22 09:24 97.7 F 59 L 20 131/75 100 Pulse Ox O2 Del Method O2 Del Method 03/11/22 16:49 03/11/22 14:51 97 Room Air 03/11/22 15:20 Room Air 03/11/22 14:51 Room Air 03/11/22 13:00 Room Air 03/11/22 11:16 Room Air 03/11/22 10:05 Room Air 03/11/22 09:48 Room Air 03/11/22 09:45 Room Air 03/11/22 09:24 Room Air Cardiovascular RRR, no murmur, no edema Respiratory normal respiratory effort, lungs clear to auscultation Pre-Sedation Airway Assessment Smoking Status: Never smoker Hx Sleep Apnea: No Hx Difficult Intubation: No Short, Thick Neck: No Thyromental Distance: > or= 3.5 Finger Breadths Oral Cavity: + WNL Mallampati Class: III ASA: ASA3 NPO Status Date of Last Intake of Fluids: 03/11/22 Time of Last Intake of Fluids: 08:00 Last Oral Intake of Fluids Comment: sip with meds Date of Last Intake of Solid Food: 03/10/22 Procedure Planning Contraindications for Sedation: none Current Medications Reviewed: Yes Notes The planned sedation has been discussed with the patient. Informed Consent was obtained. I have identified the patient, determined the appropriateness of sedation and have assessed the patient immediately prior to the procedure. All medicine(s) and interventions are by my order.
--- NOTE | 2022-03-11 17:21 | Cardiac Catheterization ---
[facility] Data: Religious Activities Director Cardiac Status Clinical evaluation leading to the procedure CAD Presenation: Non STEMI Anginal Classification: CCS IV Diagnostic Physicians Name: Zen Sosa MD Closure Device Recommendations: Medical Therapy and/or Counseling Cardiac Cath Procedure Full Procedure Date March 11, 2022 Pre-Procedure Diagnosis Pre-Procedure Diagnosis: Angina AUC Score AUC Score: 7 Post-Procedure Diagnosis Post-Procedure Diagnosis: Mild CAD Procedure(s) Performed Procedure(s) Performed: Coronary Angiography, Left Heart Cath and Ultrasound Guided Vascular Access Communication Arts Lecturer Zen Sosa MD Systems Testing Laboratory Technician(s) Ladonna Estimated Blood Loss Estimated Blood Loss: 5 Medication(s) Medication(s): Fentanyl, Heparin, Lidocaine 1%, Nicardipine, Nitroglycerin and Versed Summary of Findings Indication: Suspected ACS. Prior PCI to LAD 01/2022 Access: 6 Fr right ulnar artery under ultrasound guidance Catheters: [place], diagnostic JL 3.5, AL-1 Findings: LM -normal caliber, no significant disease LAD -medium caliber, proximal to mid stent widely patent. Remainder of LAD without significant disease. Jailed D1 with acute band and 40% ostial but SHEBA- 3 flow Circumflex -medium caliber, no significant disease. Small OM1, OM 2 without disease. RCA -dominant, large caliber, no significant disease. PDA with sluggish flow LVEDP -14 Arterial Closure: TR band Summary: 1. Mild nonobstructive coronary artery disease -Widely patent proximal to mid LAD stent. 40% ostial jailed D1 Sluggish flow in PDA, distal LAD potentially secondary to vasospasm/microvascular dysfunction Known atretic OVALLE 2. Normal intracardiac filling pressure Recommendations: Titrate coronary vasodilators, continue ASCVD risk factor modification Continue DAPT with aspirin, clopidogrel Can discontinue heparin infusion Hemodynamics Rest Ao:: 118/61/89 Final Ao: 136/7696 LV: 118/14 Recommendations Recommendations: Medical Therapy and/or Counseling Specimens Specimens: None Radiation Exposure (mGy) 851 Contrast (mls) 30 Anesthesia Moderate [id number] Procedural Complication(s) None Disposition PCU I attest to the content of the Intraoperative Record and any orders documented therein. Any exceptions are noted below. [employer] Card Cath Procedure Codes Cardiac Catheterization Procedure 1: Cardiovascular Cath Procedures: 78059 Coronaries and LHC (+/-LV) Therapeutic Services & Ancillary Proc Procedure 1: Cardiovascular Tx and Anc Procedures: 29263 Ultrasonic Guidance Vascular Access Moderate Sedation Procedure 1: Sedation/Anesthesia: 56197 Mod Sedation by the same physician;Init15 Min Child Age 5 & Up PG Care Time/CCT Total # of Minutes Spent Total Time Spent with Patient: Total time spent is greater than 50% in coordination of care (as documented) at patient's floor/unit and/or counseling patient:
[2022-03-11] MEDS ORDERED: SODIUM CHLORIDE 0.9% 1000ML 1,000 ML IV SCH (17:30)
[2022-03-11] MEDS ORDERED: NITROGLYCERIN 2% OINTMENT 30GM TUBE EXT SCH (18:00)
[2022-03-11] MEDS ORDERED: ROSUVASTATIN CALCIUM 20 MG TAB PO SCH (21:00)
[2022-03-11] MEDS ORDERED: METOPROLOL SUCC 50MG EXT REL TAB PO SCH (21:00)
[2022-03-11] MEDS ORDERED: TOPIRAMATE 100 MG TAB PO SCH (21:00)
[2022-03-11] MEDS ORDERED: amLODIPine BESYLATE 5 MG TAB PO SCH (21:00)
[2022-03-12 02:35] LABS: Basophils # (auto) 0.02 K/uL (0-0.2); Basophils % (auto) 0.3 %; Eosinophils # (auto) 0.12 K/uL (0-0.50); Eosinophils % (auto) 1.9 %; Hematocrit (blood only) 37.6 % (34.1-44.9); Hemoglobin 12.7 g/dl (12.0-16.0); Immature Granulocytes # (auto) 0.02 K/uL (0.00-0.02); Immature Granulocytes % (auto) 0.3 %; Lymphocytes # (auto) 1.88 K/uL (1.2-3.4); Lymphocytes % (auto) 29.8 %; Mean Corpuscular Hemoglobin 30.2 pg (25.0-34.0); Mean Corpuscular Hgb Conc 33.8 g/dL (32.0-36.0); Mean Corpuscular Volume 89.5 fL (80.0-100.0); Mean Platelet Volume 9.1 fL (9.4-12.3); Monocytes # (auto) 0.32 K/uL (0.24-0.82); Monocytes % (auto) 5.1 %; Neutrophils # (auto) 3.94 K/uL (1.4-6.5); Neutrophils % (auto) 62.6 %; Platelet Count 169 K/uL (130-400); RDW Coefficient of Variation 12.7 % (11.5-14.5); RDW Standard Deviation 41.4 fL (36.4-46.3)
[2022-03-12 03:04] LABS: BUN Creatinine Ratio 13.9 (10-20); Calcium 8.6 mg/dl (8.5-10.1); Creatinine Clr Calc Pharmacy 59.7 ml/min; Est GFR (African American) 67.9 ml/min; Est GFR (Non-African American) 58.6 ml/min; Magnesium 1.8 mg/dl (1.7-2.4); Potassium 3.5 mmol/L (3.5-5.1)
[2022-03-12 03:17] LABS: Prothrombin Time 10.9 Seconds (9.0-12.0)
[2022-03-12 03:39] LABS: Troponin I High Sensitivity 102.2 pg/ml (0-14)
[2022-03-12 06:52] LABS: Estimated Average Glucose 134 mg/dl; Hemoglobin A1C 6.3 % (4.5-5.6)
[2022-03-12] MEDS ORDERED: CLOPIDOGREL BISULFATE 75 MG TAB PO SCH (09:00)
[2022-03-12] MEDS ORDERED: ISOSORBIDE MONO EXTENDED REL 30 MG TABCR PO SCH (09:00)
[2022-03-12] MEDS ORDERED: POTASSIUM CHLORIDE CRTAB 20 MEQ TABCR PO SCH (09:00)
[2022-03-12] MEDS ORDERED: ASPIRIN 81 MG ECTAB PO SCH (09:00)
[2022-03-12] MEDS ORDERED: hydroCHLOROthiazide 25 MG TAB PO SCH (09:00)
[2022-03-12] MEDS ORDERED: PANTOprazole 40 MG TAB PO SCH (09:00)
--- NOTE | 2022-03-12 11:07 | Cardiology Progress Note ---
Date of Service March 12, 2022 Assessment & Plan (1) Chest pain: Plan: -etiology of her discomfort is uncertain; spasm versus small vessel disease versus GI. -isosorbide mononitrate restarted yesterday. -stable for discharge. -follow-up with Dr. Cisse. (2) CAD (coronary artery disease): Plan: -s/p OVALLE to the LAD, December 2014 (robotic procedure). -proximal LAD FESTUS, 3.0 x 15 mm [place], January 30, 2022. -angioplasty of a jailed 1st diagonal branch, January 30, 2022. -cardiac catheterization yesterday noted a widely patent stent and a 40% jailed D1. (3) Hypertension: Plan: -adequate control on current regimen. (4) Dyslipidemia: Plan: -continue rosuvastatin. Admission and Anticipated Discharge Date Admission Date: March 11, 2022 Subjective The patient is resting comfortably in bed without complaints of chest pain dyspnea. She does have a headache related to isosorbide mononitrate. Physical Exam Physical Exam: In general this is a well-developed well-nourished white female in no acute distress. HEENT exam is negative. Neck is supple with full carotid upstrokes. There are no carotid bruits. Jugular venous pressure is flat at 90. There is no thyromegaly. Cardiovascular exam reveals a regular rhythm with a normal S1 and S2. No S3, S4, or murmurs are noted. Lungs are clear without rales, rhonchi, or wheezes. Abdomen is soft and nontender without bruits. Extremities reveal intact radial artery and posterior tibial pulses bilaterally. Right wrist is intact. There is no peripheral edema. Results & Data ([facility]) Vital Signs (Past 12 Hours) Vital Signs Temp Pulse Pulse Resp BP Pulse Ox O2 Del Method 03/12/22 08:00 61 03/12/22 07:54 36.6 C 61 18 123/76 97 Room Air 03/12/22 03:00 36.8 C 64 18 111/75 98 03/11/22 23:55 53 L 03/11/22 23:00 36.3 C L 55 L 18 109/67 98 Laboratory Results High sensitivity troponin on presentation was 227.1 with follow-up values of 210.9, 139.7, 102.2, and 74.8. Diagnostic Findings Cardiac catheterization revealed a widely patent proximal to mid LAD stent. There is a jailed D1 40% stenosis with normal flow. tooling specialist is benign. PG Care Time/CCT Total # of Minutes Spent Total Time Spent with Patient: Total time spent is greater than 50% in coordination of care (as documented) at patient's floor/unit and/or counseling patient: Coding Level of Care Code 66470 Subseq Hosp Care Lvl 3 Diagnoses Chest pain R07.9 CAD (coronary artery disease) I25.10 Hypertension I10 Dyslipidemia E78.5
--- NOTE | 2022-03-12 11:39 | Discharge Summary ---
Date of Service March 12, 2022 Admission HPI Per Admitting Provider Nanci Zuniga is a 52-year-old female with past medical history significant for CAD s/p CABG x1 OVALLE to LAD in 2014 and subsequent FESTUS placement in proximalmid LAD in January 2022 due to an atretic OVALLE, hypertension, hyperlipidemia, migraine headaches, and GERD who presents today with chest pain. Last evening around 10:00 PM she was watching TV suddenly felt central chest pain that radiated to her back between her shoulder blades as well as her right jaw. She rates his pain 7-8/10. Continue to persist throughout the night, eventually she fell asleep is able to sleep through the night. She woke up this morning with the pain still present. It is associated with a throbbing bilateral headache and a sensation of feeling winded and nausea. She called her machinist apprentice this morning who recommended she present to the ED for evaluation. Since her stent was placed about a month ago, she has had 2 other incidents of chest pain similar to today's event, both coming on at rest. Chest pain is similar to how she presented prior to her bypass several years ago and prior to stent placement, however at that time her symptoms presented with exertion. In the ED, her VS are wnl and stable, HR in 50s, which appears to be patient's baseline. Labs significant for initial hs trop of 227, otherwise labs are largely unremarkable, D-dimer checked, <190 ug/L. CXR did not show acute process, negative for mediastinal widening. Principal Diagnosis Chest painetiology uncertain Discharge Exam No acute distress Heart regular Chest clear Good volume status Vital Signs Temp Pulse Pulse Resp BP Pulse Ox Pulse Ox 03/12/22 08:00 61 03/12/22 07:54 36.6 C 61 18 123/76 97 03/12/22 03:00 36.8 C 64 18 111/75 98 03/11/22 23:55 53 L 03/11/22 23:00 36.3 C L 55 L 18 109/67 98 03/11/22 19:49 36.6 C 58 L 18 116/76 98 03/11/22 18:47 36.4 C L 62 16 133/79 97 03/11/22 18:34 64 03/11/22 18:13 36.8 C 60 18 131/75 98 03/11/22 17:58 36.7 C 61 18 110/72 95 03/11/22 17:43 36.8 C 56 L 18 111/76 98 03/11/22 17:28 36.7 C 57 L 18 108/76 97 03/11/22 17:26 57 L 18 108/76 97 03/11/22 16:49 58 L 03/11/22 14:51 97 03/11/22 15:20 36.5 C 56 L 18 129/87 97 03/11/22 14:51 36.5 C 56 L 18 129/87 97 03/11/22 13:00 58 L 19 97 O2 Del Method O2 Del Method 03/12/22 08:00 03/12/22 07:54 Room Air 03/12/22 03:00 03/11/22 23:55 03/11/22 23:00 03/11/22 19:49 03/11/22 18:47 Room Air 03/11/22 18:34 03/11/22 18:13 Room Air 03/11/22 17:58 Room Air 03/11/22 17:43 Room Air 03/11/22 17:28 Room Air 03/11/22 17:26 Room Air 03/11/22 16:49 03/11/22 14:51 Room Air 03/11/22 15:20 Room Air 03/11/22 14:51 Room Air 03/11/22 13:00 Room Air Intake and Output 03/11/22 03/12/22 03/12/22 22:59 06:59 14:59 Intake Total 315.5 / 1368.833 553.333 / 1368.833 Balance 315.5 / 1368.833 553.333 / 1368.833 Intake: IV 75.5 / 1128.833 553.333 / 1128.833 Heparin Sodium/Dextrose 25,000 75.5 / 75.5 units In 500 ml @ 750 UNITS/HR 15 mls/hr IV .Q24H ANANTH Rx#: [id number] Sodium Chloride 0.9% 1000ML 1, 553.333 / 553.333 000 ml @ 100 mls/hr IV .Q10H ANANTH Rx#:[id number] Oral 240 / 240 Other: # Unmeasured Voids 1 1 Weight 81.7 kg 81.6 kg 81.6 kg Weight Measurement Method Standing Scale Built in [facility] Patient Weight 03/13/22 06:59 Weight 81.6 kg Discharge Data Allergies Allergy/AdvReac Type Severity Reaction Status Date / Time Penicillins Allergy Severe ANAPHYLAXIS Verified 02/06/22 10:30 Sulfa (Sulfonamide Allergy Mild RASH Verified 02/06/22 10:30 Antibiotics) Consultations 03/11/22 11:13 ED Decision to Admit Stat 03/11/22 14:51 Consult Cardiology Routine Procedures Performed Operation Date: 03/11/22 16:15 Actual Procedures p Cath, Left with Cors and Vent - Devan Sosa MD s Cineradiography w/Routine Exam - Devan Sosa MD s Ultrasound Vascular Access - Devan Sosa MD Ordered Studies 03/11/22 15:46 CL Cath Imgs for PACS use only Routine Hospital Course (1) Chest pain: Underwent coronary angiography: Summary: 1. Mild nonobstructive coronary artery disease -Widely patent proximal to mid LAD stent. 40% ostial jailed D1 Sluggish flow in PDA, distal LAD potentially secondary to vasospasm/microvascular dysfunction Known atretic OVALLE 2. Normal intracardiac filling pressure Therefore, etiology of chest pain unclear; resolved, feels well and wants discharge; cardiology communicated with me can go home (2) CAD (coronary artery disease): Isosorbide mononitrate added; coronary angiography as above; outpatient (3) Hypertension: Home meds except as above (4) Dyslipidemia: - Continue rosuvastatin 20 mg at night. - Most recent lipid panel in December 2021 --> all levels wnl. (5) GERD (gastroesophageal reflux disease): - Continue pantoprazole. Patient was recently switched from omeprazole to pantoprazole at last cardiology appointment due to the above results interaction with Plavix. (6) History of migraine headaches: - Continue topiramate 100 mg at night. Total Time Total Time Spent Total Time Spent (In Minutes): 25 Discharge Plan Discharge Items Patient Disposition: Home - Self-Care Reason For Visit: CHEST PAIN Discharge Diagnosis: Chest painuncertain etiology Activity: Resume your previous activity Non-emergency contact: Primary Care Provider and Drilling Manager Call non-emergency contact if: your symptoms worsen Follow-up/Referrals: Juan Cisse MD [Physician] - (Routine posthospitalization follow-up in about a month) Freddie Arnold, DO [Primary Care Provider] - Diet: Heart Healthy Addtl Attending Provider Instructions: Follow-up with your healthcare providers as previously advised; Per cardiology new medication called isosorbide mononitrate (Imdur) has been initiated and prescription sent to the pharmacy; start taking from tomorrow Pending Studies at Discharge: No Stand-Alone Forms: My [facility] [employer], Smoking Cessation Medications and DC Order Prescriptions: New isosorbide mononitrate 30 mg Tablet Extended Release 24 Hr 30 mg PO QAM Qty: 30 1RF Continued potassium chloride 20 mEq tablet extended release 40 meq PO DAILY Qty: 180 3RF clopidogrel [Plavix] 75 mg tablet 75 mg PO DAILY Qty: 90 3RF pantoprazole [Protonix] 40 mg tablet,delayed release (DR/EC) 40 mg PO DAILY Qty: 90 3RF dfkloslxer-gtljihutwpshj-kmrb 50-325-40 mg tablet 1 tab PO Q6H PRN (Reason: Headache) levonorgestrel 20 mcg/24 hours (5 yrs) 52 mg intrauterine device 20 mcg IU ONCE amlodipine 5 mg tablet 5 mg PO HS Qty: 90 3RF hydrochlorothiazide 25 mg tablet 25 mg PO DAILY Qty: 90 3RF metoprolol succinate 100 mg tablet extended release 24 hr 100 mg PO HS Qty: 90 3RF rosuvastatin 20 mg tablet 20 mg PO HS Qty: 90 3RF topiramate 100 mg tablet 100 mg PO HS aspirin 81 mg tablet,delayed release (DR/EC) 81 mg PO DAILY Qty: 30 0RF Discharge Orders: Discharge Order (Routine); Ordered 03/12/22 Ordered By: Ana Mathew/Other Patient Handouts: Prediabetes, 5 Steps for Eating Healthier Admission Data Admit Date/Time: 03/11/22 14:41 Attending Provider: Ana Lopez Admit Provider: Lexi Rosen Primary Care Provider: Freddie Arnold Other Providers: Lexi Rosen ; Aly Bishop Coding Level of Care Code D/C DAY MANAGEMENT <30 MINS Diagnoses Chest pain R07.9 CAD (coronary artery disease) I25.10 Hypertension I10 Dyslipidemia E78.5 GERD (gastroesophageal reflux disease) K21.9 History of migraine headaches Z86.69
--- NOTE | 2022-03-12 13:40 | Electrocardiogram Report ---
Test Reason : Blood Pressure : / mmHG Vent. Rate : 055 BPM Atrial Rate : 055 BPM P-R Int : 150 ms QRS Dur : 096 ms QT Int : 442 ms P-R-T Axes : 023 061 042 degrees QTc Int : 422 ms Sinus bradycardia Otherwise normal ECG When compared with ECG of 11-MAR-2022 09:21, No significant change was found Confirmed by Aly Bishop ([id number]) on 03/12/2022 1:40:06 PM Referred By: Juan Cisse Confirmed By:Aly Bishop
--- NOTE | 2022-03-12 13:55 | Electrocardiogram Report ---
Test Reason : Blood Pressure : / mmHG Vent. Rate : 061 BPM Atrial Rate : 061 BPM P-R Int : 156 ms QRS Dur : 096 ms QT Int : 456 ms P-R-T Axes : 034 063 050 degrees QTc Int : 459 ms Normal sinus rhythm Normal ECG When compared with ECG of 11-MAR-2022 15:05, (unconfirmed) No significant change was found Confirmed by Aly Bishop ([id number]) on 03/12/2022 1:55:19 PM Referred By: Juan Cisse Confirmed By:Aly Bishop
== END 2022-03-12 12:45 | disposition home or self-care (01) | DRG 287 ==
LOC: ED 09:16 → 2S 14:03 → SUATTDRO 14:41 → INTOOBSV 14:41